=== PATIENT | female | born 1975 | race Caucasian/White ===

== ENCOUNTER 2020-12-15 15:32 | Inpatient (IN) | payer OTHER ==
[2020-12-15 16:41] LABS: BHCG - Serum Negative (NEGATIVE); Pregs Control Background? CLEAR/WHITE (CLR/WHITE); Pregs Control Bar Appear? YES (CONTROL BAR)
[2020-12-15] MEDS ORDERED: Ondansetron PF 4 MG/2 ML Vial ONE (16:51)
[2020-12-15] MEDS ORDERED: Morphine 4 MG/ML VIAL ONE ×2 (16:51→18:02)
[2020-12-15 17:00] LABS: Chloride 103 mmol/L (98-107); Potassium 3.8 mmol/L (3.5-5.1)
[2020-12-15 17:01] LABS: Carbon Dioxide 20 mmol/L (22-29)
[2020-12-15 17:02] LABS: Anion Gap 18 mmol/L (10-20); BUN (Urea Nitrogen) 10 mg/dL (7.0-18.7); Calc. Creatinine Clearance 0 mL/min (70-130); Sodium 137 mmol/L (136-145)
[2020-12-15 17:03] LABS: Bilirubin, Total 0.2 mg/dL (0.2-1.2); Calcium 8.2 mg/dL (7.8-10.44); Glucose 223 mg/dL (70-105)
[2020-12-15 17:04] LABS: ALT (SGPT) 14 U/L (8-55); AST (SGOT) 13 U/L (5-34); Alkaline Phosphatase 84 U/L (40-110); Lipase 314 U/L (8-78)
[2020-12-15 17:09] LABS: Bilirubin Neg (Negative); Blood, Urine 250 (Negative); Clarity Cloudy (Clear); Glucose, Urine (Dipstick) 250 mg/dL (Negative); Ketone, Urine 150 mg/dL (Negative); Leukocyte 25 (Negative); Nitrite Negative (Negative); Protein, Urine (Dipstick) 500 mg/dl (Neg-Trace); Specific Gravity, Urine 1.025 (1.002-1.036); Urobilinogen Normal mg/dL (Less than 2)
[2020-12-15 17:26] LABS: RBC/HPF Greater than 50 HPF (0-3)
[2020-12-15 17:27] LABS: Bacteria/HPF Rare-Few HPF (None Seen); Squamous Epithelial 0-3 HPF (0-3); WBC/HPF 0-3 HPF (0-3)
[2020-12-15 17:27] LABS: #Eosinphils 0.3 10x3/uL (0.0-0.5); #Monocytes 0.6 10x3/uL (0.0-1.1); #Neutrophils 10.7 10x3/uL (1.5-8.4); %Basophils 0.2 % (0.0-2.0); %Eosinophils 2.1 % (0.0-6.0); %Lymphocytes 14.6 % (18.0-47.0); %Monocytes 4.4 % (0.0-10.0); Hemoglobin 12.7 g/dL (12.0-15.5); Mean Corpuscular HGB CONC 36.2 g/dL (32.0-36.0); Mean Corpuscular Hemoglobin 29.2 pg (27.0-33.0); Mean Corpuscular Volume 80.7 fl (81.6-98.3); Mean Platelet Volume 12.6 fl (7.4-10.4); Platelet Count 274 10x3/uL (150-450); RBC Distribution Width 14.9 % (11.5-14.5); Red Blood Cell (RBC) Count 4.35 10x6/uL (3.90-5.03); White Blood Cell (WBC) Count 13.7 10x3/uL (3.5-10.5)
[2020-12-15] MEDS ORDERED: Dextrose 50% Abboject 50 ML SYRINGE SLOW IVP PRN (19:15)
[2020-12-15] MEDS ORDERED: Dextrose 5% in Water 1,000 ML IV PRN (19:15)
[2020-12-15] MEDS ORDERED: Zolpidem Tartrate 5 MG TAB PO PRN (19:15)
[2020-12-15] MEDS ORDERED: Calcium Carbonate 500 MG ChewTAB PO PRN (19:15)
[2020-12-15] MEDS ORDERED: Senokot S 8.6-50 MG TAB PO PRN (19:15)
[2020-12-15] MEDS ORDERED: HumaLOG 300 UNITS/3 ML VIAL SC PRN (19:15)
[2020-12-15] MEDS ORDERED: Lactated Ringer's 1,000 ML IV SCH (19:30)
[2020-12-15] MEDS: Famotidine/PF 20 mg/2ml Vial SLOW IVP SCH (20:42)
[2020-12-15] MEDS: Lactated Ringer's 1,000 ML IV SCH (20:42)
[2020-12-15] MEDS: Simvastatin 10 MG TAB PO SCH (20:42)
[2020-12-15] MEDS: Morphine 4 MG/ML VIAL SLOW IVP PRN (21:54)
[2020-12-16 02:06] VITALS: BMI 33.2
[2020-12-16] MEDS: Lactated Ringer's 1,000 ML IV SCH ×2 (06:16→16:41)
[2020-12-16] MEDS: Morphine 4 MG/ML VIAL SLOW IVP PRN ×2 (07:05→15:12)
[2020-12-16 07:14] LABS: ALT (SGPT) 11 U/L (8-55); AST (SGOT) 8 U/L (5-34); Albumin 3.2 g/dL (3.5-5.0); Alkaline Phosphatase 70 U/L (40-110); BUN (Urea Nitrogen) 4 mg/dL (7.0-18.7); Bilirubin, Total 0.4 mg/dL (0.2-1.2); Calc. Creatinine Clearance 184 mL/min (70-130); Calcium 8.2 mg/dL (7.8-10.44); Chloride 103 mmol/L (98-107); Cholesterol 345 mg/dl (< 200 Desired); Globulin 4.2 g/dL (2.4-3.5); Glucose 241 mg/dL (70-105); HDL Cholesterol 15 mg/dL (>60 Neg Risk); Lipase 183 U/L (8-78); Magnesium 1.7 mg/dL (1.6-2.6); Potassium 3.6 mmol/L (3.5-5.1); Protein, Total 7.4 g/dL (6.0-8.3); Sodium 134 mmol/L (136-145)
[2020-12-16 07:16] LABS: #Eosinphils 0.2 10x3/uL (0.0-0.5); #Monocytes 0.8 10x3/uL (0.0-1.1); #Neutrophils 9.8 10x3/uL (1.5-8.4); %Basophils 0.2 % (0.0-2.0); %Eosinophils 1.4 % (0.0-6.0); %Lymphocytes 10.4 % (18.0-47.0); %Monocytes 6.4 % (0.0-10.0); %Neutrophils 80.9 % (40.0-75.0); Hemoglobin 11.4 g/dL (12.0-15.5); Mean Corpuscular HGB CONC 33.2 g/dL (32.0-36.0); Mean Corpuscular Hemoglobin 26.6 pg (27.0-33.0); Mean Corpuscular Volume 80.1 fl (81.6-98.3); Mean Platelet Volume 12.4 fl (7.4-10.4); Platelet Count 229 10x3/uL (150-450); RBC Distribution Width 15.3 % (11.5-14.5); Red Blood Cell (RBC) Count 4.28 10x6/uL (3.90-5.03); White Blood Cell (WBC) Count 12.2 10x3/uL (3.5-10.5)
[2020-12-16] MEDS ORDERED: Glimepiride 4 MG TAB PO SCH (08:00)
[2020-12-16 08:03] LABS: Carbon Dioxide 10 mmol/L (22-29)
[2020-12-16 08:10] LABS: Triglycerides 2768 mg/dL (Less than 150)
[2020-12-16] MEDS: Lisinopril 5 MG TAB PO SCH (09:02)
[2020-12-16] MEDS: Famotidine/PF 20 mg/2ml Vial SLOW IVP SCH ×2 (09:02→20:29)
[2020-12-16] MEDS: Enoxaparin Sodium 40 MG/0.4 ML SYRINGE SC SCH (09:02)
[2020-12-16] MEDS ORDERED: D5 1/2 NS w/20 mEq KCL 1,000 ML IV PRN (09:05)
[2020-12-16] MEDS ORDERED: NS 0.9% w/ 20 MEQ KCL 1,000 ML IV PRN ×2 (09:05)
[2020-12-16] MEDS ORDERED: Electrolyte Replacement Protocol IVPB SCH (09:05)
[2020-12-16] MEDS ORDERED: Dextrose 5 %-0.45 % NaCl 1,000 ML IV PRN (09:05)
[2020-12-16 13:45] LABS: SARS-CoV-2 PCR by NAA Not Detected (NotDetected)
[2020-12-16] MEDS: INSULIN REGULAR IN 0.9 % NACL 100 UNIT in Premix Bag 1 BAG IVPB SCH (15:00)
[2020-12-16 18:15] LABS: Anion Gap 25 mmol/L (10-20); BUN (Urea Nitrogen) Less than 4 mg/dL (7.0-18.7); Calc. Creatinine Clearance 170 mL/min (70-130); Calcium 8.1 mg/dL (7.8-10.44); Carbon Dioxide 10 mmol/L (22-29); Chloride 102 mmol/L (98-107); Glucose 188 mg/dL (70-105); Sodium 133 mmol/L (136-145)
[2020-12-16 18:18] LABS: Potassium 4.3 mmol/L (3.5-5.1)
[2020-12-16] MEDS: Morphine 2 MG/ML VIAL SLOW IVP PRN (19:36)
[2020-12-16] MEDS: Simvastatin 10 MG TAB PO SCH (20:29)
[2020-12-16] MEDS: Acetaminophen 325 MG TAB PO PRN (20:31)
[2020-12-16] MEDS ORDERED: Magnesium 2 GM/50 ML 2 GM in Premix Bag 1 BAG IVPB SCH (21:00)
[2020-12-16] MEDS: Dextrose 5 % And 0.9 % NaCl 1,000 ML IV SCH (21:25)
[2020-12-17] MEDS: Ondansetron PF 4 MG/2 ML Vial IVP PRN ×2 (00:05→08:27)
[2020-12-17 04:17] LABS: #Eosinphils 0.1 10x3/uL (0.0-0.5); #Monocytes 0.5 10x3/uL (0.0-1.1); #Neutrophils 8.9 10x3/uL (1.5-8.4); %Basophils 0.2 % (0.0-2.0); %Eosinophils 1.3 % (0.0-6.0); %Lymphocytes 13.2 % (18.0-47.0); %Monocytes 4.8 % (0.0-10.0); %Neutrophils 79.7 % (40.0-75.0); Hemoglobin 9.9 g/dL (12.0-15.5); Mean Corpuscular HGB CONC 32.4 g/dL (32.0-36.0); Mean Corpuscular Hemoglobin 26.5 pg (27.0-33.0); Mean Platelet Volume 12.4 fl (7.4-10.4); Platelet Count 206 10x3/uL (150-450); RBC Distribution Width 15.5 % (11.5-14.5); Red Blood Cell (RBC) Count 3.73 10x6/uL (3.90-5.03); White Blood Cell (WBC) Count 11.1 10x3/uL (3.5-10.5)
[2020-12-17] MEDS: Morphine 2 MG/ML VIAL SLOW IVP PRN (05:09)
[2020-12-17] MEDS: Acetaminophen 325 MG TAB PO PRN ×3 (05:28→23:13)
[2020-12-17 05:51] LABS: ALT (SGPT) 11 U/L (8-55); AST (SGOT) 12 U/L (5-34); Alkaline Phosphatase 65 U/L (40-110); Anion Gap 14 mmol/L (10-20); BUN (Urea Nitrogen) 4 mg/dL (7.0-18.7); Bilirubin, Total 0.3 mg/dL (0.2-1.2); Calc. Creatinine Clearance 193 mL/min (70-130); Carbon Dioxide 18 mmol/L (22-29); Chloride 106 mmol/L (98-107); Globulin 3.7 g/dL (2.4-3.5); Glucose 197 mg/dL (70-105); Magnesium 2.2 mg/dL (1.6-2.6); Potassium 3.4 mmol/L (3.5-5.1); Protein, Total 6.7 g/dL (6.0-8.3); Sodium 135 mmol/L (136-145)
[2020-12-17] MEDS: Dextrose 5 % And 0.9 % NaCl 1,000 ML IV SCH ×3 (05:54→23:15)
[2020-12-17 06:48] LABS: Phosphorus 1.6 mg/dL (2.3-4.7)
[2020-12-17] MEDS: Lactated Ringer's 1,000 ML IV SCH (07:03)
[2020-12-17] MEDS ORDERED: Potassium Chloride 20 MEQ TAB PO SCH (08:00)
[2020-12-17] MEDS: Enoxaparin Sodium 40 MG/0.4 ML SYRINGE SC SCH (08:27)
[2020-12-17] MEDS: INSULIN REGULAR IN 0.9 % NACL 100 UNIT in Premix Bag 1 BAG IVPB SCH (08:27)
[2020-12-17] MEDS: Famotidine/PF 20 mg/2ml Vial SLOW IVP SCH ×2 (08:27→21:15)
[2020-12-17] MEDS ORDERED: Potassium Phosphate 15 MMOL in Sodium Chloride 0.9% 250 ML 250 ML IVPB SCH (09:00)
[2020-12-17] MEDS: Lisinopril 5 MG TAB PO SCH (09:03)
[2020-12-17 11:22] LABS: Hemoglobin A1c 9.6 % (4.0-6.0)
[2020-12-17 15:21] LABS: Anion Gap 11 mmol/L (10-20)
[2020-12-17 15:23] LABS: BUN (Urea Nitrogen) 4 mg/dL (7.0-18.7); Calc. Creatinine Clearance 214 mL/min (70-130); Calcium 7.9 mg/dL (7.8-10.44); Carbon Dioxide 21 mmol/L (22-29); Chloride 109 mmol/L (98-107); Glucose 146 mg/dL (70-105); Phosphorus 2.1 mg/dL (2.3-4.7); Potassium 3.8 mmol/L (3.5-5.1); Sodium 137 mmol/L (136-145)
[2020-12-17] MEDS: Simvastatin 10 MG TAB PO SCH (21:15)
[2020-12-18 04:41] LABS: ALT (SGPT) 10 U/L (8-55); AST (SGOT) 8 U/L (5-34); Albumin 2.9 g/dL (3.5-5.0); Alkaline Phosphatase 62 U/L (40-110); Anion Gap 11 mmol/L (10-20); BUN (Urea Nitrogen) Less than 4 mg/dL (7.0-18.7); Bilirubin, Total 0.3 mg/dL (0.2-1.2); Calc. Creatinine Clearance 214 mL/min (70-130); Carbon Dioxide 20 mmol/L (22-29); Chloride 110 mmol/L (98-107); Globulin 3.3 g/dL (2.4-3.5); Glucose 185 mg/dL (70-105); Potassium 3.3 mmol/L (3.5-5.1); Protein, Total 6.2 g/dL (6.0-8.3); Sodium 138 mmol/L (136-145)
[2020-12-18 04:45] LABS: Phosphorus 1.9 mg/dL (2.3-4.7)
[2020-12-18] MEDS: Enoxaparin Sodium 40 MG/0.4 ML SYRINGE SC SCH (07:44)
[2020-12-18] MEDS: PHOS-NAK 1 PKT PACK PO SCH ×2 (07:44→20:36)
[2020-12-18] MEDS: Acetaminophen 325 MG TAB PO PRN ×2 (07:44→17:47)
[2020-12-18] MEDS: Lisinopril 5 MG TAB PO SCH (07:45)
[2020-12-18] MEDS: Dextrose 5 % And 0.9 % NaCl 1,000 ML IV SCH ×3 (07:46→21:27)
[2020-12-18] MEDS: Famotidine/PF 20 mg/2ml Vial SLOW IVP SCH ×2 (07:46→20:36)
[2020-12-18] MEDS ORDERED: Potassium Bicarbonate/Cit Ac 20 MEQ TAB PO SCH (08:30)
[2020-12-18] MEDS ORDERED: Magnesium 2 GM/50 ML 2 GM in Premix Bag 1 BAG IVPB SCH (08:30)
[2020-12-18] MEDS ORDERED: PHOS-NAK 1 PKT PACK PO SCH (09:00)
[2020-12-18] MEDS: INSULIN REGULAR IN 0.9 % NACL 100 UNIT in Premix Bag 1 BAG IVPB SCH (14:43)
[2020-12-18] MEDS: Simvastatin 10 MG TAB PO SCH (20:36)
[2020-12-19] MEDS: Acetaminophen 325 MG TAB PO PRN ×2 (02:04→16:41)
[2020-12-19 04:32] LABS: #Eosinphils 0.4 10x3/uL (0.0-0.5); #Monocytes 0.5 10x3/uL (0.0-1.1); #Neutrophils 4.1 10x3/uL (1.5-8.4); %Basophils 0.3 % (0.0-2.0); %Eosinophils 5.4 % (0.0-6.0); %Lymphocytes 24.2 % (18.0-47.0); %Monocytes 7.9 % (0.0-10.0); %Neutrophils 61.7 % (40.0-75.0); Hemoglobin 8.6 g/dL (12.0-15.5); Mean Corpuscular HGB CONC 31.7 g/dL (32.0-36.0); Mean Corpuscular Hemoglobin 26.5 pg (27.0-33.0); Mean Corpuscular Volume 83.6 fl (81.6-98.3); Mean Platelet Volume 12.2 fl (7.4-10.4); Platelet Count 202 10x3/uL (150-450); RBC Distribution Width 15.3 % (11.5-14.5); Red Blood Cell (RBC) Count 3.24 10x6/uL (3.90-5.03); White Blood Cell (WBC) Count 6.6 10x3/uL (3.5-10.5)
[2020-12-19 04:46] LABS: Anion Gap 12 mmol/L (10-20)
[2020-12-19 04:49] LABS: BUN (Urea Nitrogen) Less than 4 mg/dL (7.0-18.7); Calc. Creatinine Clearance 210 mL/min (70-130); Calcium 8.2 mg/dL (7.8-10.44); Carbon Dioxide 21 mmol/L (22-29); Chloride 108 mmol/L (98-107); Glucose 173 mg/dL (70-105); Magnesium 1.8 mg/dL (1.6-2.6); Phosphorus 3.2 mg/dL (2.3-4.7); Potassium 3.2 mmol/L (3.5-5.1); Sodium 138 mmol/L (136-145)
[2020-12-19] MEDS: Dextrose 5 % And 0.9 % NaCl 1,000 ML IV SCH ×5 (06:17→20:31)
[2020-12-19] MEDS ORDERED: Potassium Chloride 20 MEQ TAB PO SCH (08:00)
[2020-12-19] MEDS: Famotidine/PF 20 mg/2ml Vial SLOW IVP SCH ×2 (08:45→20:30)
[2020-12-19] MEDS: Lisinopril 5 MG TAB PO SCH (08:45)
[2020-12-19] MEDS: Enoxaparin Sodium 40 MG/0.4 ML SYRINGE SC SCH (08:45)
[2020-12-19] MEDS: PHOS-NAK 1 PKT PACK PO SCH ×2 (08:45→20:30)
[2020-12-19] MEDS ORDERED: Magnesium 2 GM/50 ML 2 GM in Premix Bag 1 BAG IVPB SCH (09:00)
[2020-12-19] MEDS: Loperamide HCl 2 MG CAP PO PRN ×2 (11:21→20:31)
[2020-12-19] MEDS: INSULIN REGULAR IN 0.9 % NACL 100 UNIT in Premix Bag 1 BAG IVPB SCH (15:44)
[2020-12-19] MEDS: Simvastatin 10 MG TAB PO SCH (20:30)
[2020-12-20] MEDS: Dextrose 5 % And 0.9 % NaCl 1,000 ML IV SCH ×5 (02:00→21:05)
[2020-12-20 04:21] LABS: #Eosinphils 0.4 10x3/uL (0.0-0.5); #Monocytes 0.5 10x3/uL (0.0-1.1); #Neutrophils 3.6 10x3/uL (1.5-8.4); %Basophils 0.2 % (0.0-2.0); %Lymphocytes 29.3 % (18.0-47.0); %Monocytes 7.5 % (0.0-10.0); %Neutrophils 56.5 % (40.0-75.0); Hemoglobin 9.1 g/dL (12.0-15.5); Mean Corpuscular HGB CONC 30.7 g/dL (32.0-36.0); Mean Corpuscular Hemoglobin 25.9 pg (27.0-33.0); Mean Corpuscular Volume 84.3 fl (81.6-98.3); Mean Platelet Volume 11.9 fl (7.4-10.4); Platelet Count 240 10x3/uL (150-450); RBC Distribution Width 15.2 % (11.5-14.5); Red Blood Cell (RBC) Count 3.51 10x6/uL (3.90-5.03); White Blood Cell (WBC) Count 6.4 10x3/uL (3.5-10.5)
[2020-12-20 04:38] LABS: Anion Gap 13 mmol/L (10-20); BUN (Urea Nitrogen) Less than 4 mg/dL (7.0-18.7); Calc. Creatinine Clearance 214 mL/min (70-130); Calcium 8.1 mg/dL (7.8-10.44); Carbon Dioxide 21 mmol/L (22-29); Chloride 107 mmol/L (98-107); Glucose 160 mg/dL (70-105); Magnesium 1.7 mg/dL (1.6-2.6); Sodium 138 mmol/L (136-145)
[2020-12-20] MEDS: Potassium Chloride 20 MEQ TAB PO SCH ×2 (07:47→11:06)
[2020-12-20] MEDS: Famotidine/PF 20 mg/2ml Vial SLOW IVP SCH (07:48)
[2020-12-20] MEDS: Lisinopril 5 MG TAB PO SCH (07:48)
[2020-12-20] MEDS: Enoxaparin Sodium 40 MG/0.4 ML SYRINGE SC SCH (07:48)
[2020-12-20] MEDS ORDERED: Magnesium 2 GM/50 ML 2 GM in Premix Bag 1 BAG IVPB SCH (09:00)
[2020-12-20] MEDS ORDERED: Fenofibrate 48 MG TAB PO SCH ×2 (13:45→14:00)
[2020-12-20] MEDS: Famotidine 20 MG TAB PO SCH (21:05)
[2020-12-20] MEDS: Atorvastatin Calcium 40 MG TAB PO SCH (21:05)
[2020-12-21] MEDS: Dextrose 5 % And 0.9 % NaCl 1,000 ML IV SCH ×3 (01:37→10:12)
[2020-12-21 04:26] LABS: #Eosinphils 0.4 10x3/uL (0.0-0.5); #Monocytes 0.5 10x3/uL (0.0-1.1); #Neutrophils 3.1 10x3/uL (1.5-8.4); %Basophils 0.5 % (0.0-2.0); %Eosinophils 6.3 % (0.0-6.0); %Lymphocytes 31.6 % (18.0-47.0); %Monocytes 8.3 % (0.0-10.0); %Neutrophils 52.1 % (40.0-75.0); Hemoglobin 9.6 g/dL (12.0-15.5); Mean Corpuscular HGB CONC 31.7 g/dL (32.0-36.0); Mean Corpuscular Hemoglobin 26.3 pg (27.0-33.0); Mean Platelet Volume 11.4 fl (7.4-10.4); Platelet Count 254 10x3/uL (150-450); RBC Distribution Width 14.6 % (11.5-14.5); Red Blood Cell (RBC) Count 3.65 10x6/uL (3.90-5.03)
[2020-12-21 04:40] LABS: Anion Gap 15 mmol/L (10-20); BUN (Urea Nitrogen) Less than 4 mg/dL (7.0-18.7); Calc. Creatinine Clearance 210 mL/min (70-130); Calcium 8.5 mg/dL (7.8-10.44); Carbon Dioxide 22 mmol/L (22-29); Chloride 105 mmol/L (98-107); Glucose 181 mg/dL (70-105); Magnesium 1.7 mg/dL (1.6-2.6); Potassium 3.5 mmol/L (3.5-5.1); Sodium 138 mmol/L (136-145)
[2020-12-21] MEDS ORDERED: Magnesium 2 GM/50 ML 2 GM in Premix Bag 1 BAG IVPB SCH (05:45)
[2020-12-21] MEDS ORDERED: Potassium Chloride 20 MEQ TAB PO SCH (05:45)
[2020-12-21] MEDS: Fenofibrate 48 MG TAB PO SCH (09:30)
[2020-12-21] MEDS: Lisinopril 5 MG TAB PO SCH (09:30)
[2020-12-21] MEDS: Famotidine 20 MG TAB PO SCH ×2 (09:30→20:50)
[2020-12-21] MEDS: Enoxaparin Sodium 40 MG/0.4 ML SYRINGE SC SCH (09:30)
[2020-12-21] MEDS ORDERED: Lantus 1000 UNITS/10 ML VIAL SC SCH (12:00)
[2020-12-21] MEDS ORDERED: Dextrose 5% in Water 1,000 ML IV PRN (13:11)
[2020-12-21] MEDS ORDERED: Dextrose 50% Abboject 50 ML SYRINGE SLOW IVP PRN (13:11)
[2020-12-21] MEDS ORDERED: HumaLOG 300 UNITS/3 ML VIAL SC PRN (13:11)
[2020-12-21] MEDS: Acetaminophen 325 MG TAB PO PRN ×2 (16:52→20:54)
[2020-12-21] MEDS: Atorvastatin Calcium 40 MG TAB PO SCH (20:50)
[2020-12-22] MEDS ORDERED: Lisinopril 20 MG TAB PO SCH (09:00)
[2020-12-22] MEDS ORDERED: Lantus 1000 UNITS/10 ML VIAL SC SCH (09:00)
[2020-12-22] MEDS: Famotidine 20 MG TAB PO SCH (11:31)
[2020-12-22] MEDS: Enoxaparin Sodium 40 MG/0.4 ML SYRINGE SC SCH (11:31)
[2020-12-22] MEDS: Fenofibrate 48 MG TAB PO SCH (11:31)
[2020-12-22 11:45] VITALS: BP 142/84
[2020-12-22 20:39] VITALS: TEMP 98.1
== END 2020-12-22 11:45 | disposition home or self-care (01) | DRG 439 ==
LOC: CSHERS 15:32 → CSHTELE 19:26 → CSHIMCU 12-16 15:20 → CSHTELE 12-21 14:42
PROVIDERS: ADMIT Student in an Organized Health Care Education/Training Program; ATTEND Family Medicine
DX: K85.00 Idiopathic acute pancreatitis without necrosis or infection (principal); R65.10 Systemic inflammatory response syndrome (SIRS) of non-infectious origin without acute organ dysfunction; E78.1 Pure hyperglyceridemia; E86.0 Dehydration; K76.0 Fatty (change of) liver, not elsewhere classified; E78.5 Hyperlipidemia, unspecified; I10 Essential (primary) hypertension; E66.9 Obesity, unspecified; Z68.33 Body mass index [BMI] 33.0-33.9, adult; E11.65 Type 2 diabetes mellitus with hyperglycemia; Z79.4 Long term (current) use of insulin; K80.20 Calculus of gallbladder without cholecystitis without obstruction; Z20.822 Contact with and (suspected) exposure to COVID-19
CPT/HCPCS: 36415; 36416; 74177; 76705; 80048; 80053; 80061; 81003; 81015; 83036; 83605; 83690; 83735; 84100; 84478; 84703; 85025; 87635; 96374; 96375; 96376; J1650; J1815; J2270; J2405; J3475; J7042; J7050; S0028; U0003; U0005

== ENCOUNTER 2022-12-13 06:10 | Inpatient (IN) | payer SELFPAY ==
[2022-12-13 07:26] LABS: Bilirubin Neg (Negative); Blood, Urine Negative (Negative); Clarity Clear (Clear); Glucose, Urine (Dipstick) >=1000 mg/dL (Negative); Ketone, Urine 15 mg/dL (Negative); Leukocyte Negative (Negative); Nitrite Negative (Negative); Protein, Urine (Dipstick) 15 mg/dl (Neg-Trace); Specific Gravity, Urine 1.015 (1.005-1.030); Urobilinogen Normal mg/dL (Less than 2)
[2022-12-13 07:31] LABS: Pregnancy Test - Urine (BHCG) Negative (Negative); Pregu Control Background? CLEAR/WHITE (CLR/WHITE); Pregu Control Bar Appear? YES (CONTROL BAR); Specific Gravity 1.015 (1.002-1.036)
[2022-12-13] MEDS ORDERED: Morphine 4 MG/ML VIAL ONE (07:32)
[2022-12-13] MEDS ORDERED: Ondansetron PF 4 MG/2 ML Vial ONE (07:32)
[2022-12-13 08:10] LABS: #Eosinphils 0.3 10x3/uL (0.0-0.5); #Monocytes 0.6 10x3/uL (0.0-1.1); #Neutrophils 7.3 10x3/uL (1.5-8.4); %Basophils 0.3 % (0.0-2.0); %Eosinophils 3.1 % (0.0-6.0); %Lymphocytes 17.6 % (18.0-47.0); %Monocytes 5.6 % (0.0-10.0); %Neutrophils 72.5 % (40.0-75.0); Hemoglobin 12.4 g/dL (12.0-15.5); Mean Corpuscular HGB CONC 36.5 g/dL (32.0-36.0); Mean Corpuscular Hemoglobin 29.6 pg (27.0-33.0); Mean Corpuscular Volume 81.1 fl (81.6-98.3); Mean Platelet Volume 12.9 fl (7.4-10.4); Platelet Count 262 10x3/uL (150-450); RBC Distribution Width 14.4 % (11.5-14.5); Red Blood Cell (RBC) Count 4.19 10x6/uL (3.90-5.03); White Blood Cell (WBC) Count 10.1 10x3/uL (3.5-10.5)
[2022-12-13 08:17] LABS: ALT (SGPT) 14 U/L (8-55); AST (SGOT) 11 U/L (5-34); Albumin 3.9 g/dL (3.5-5.0); Alkaline Phosphatase 90 U/L (40-110); BUN (Urea Nitrogen) 5 mg/dL (7.0-18.7); Bilirubin, Total 0.3 mg/dL (0.2-1.2); Calc. Creatinine Clearance 0 mL/min (70-130); Chloride 99 mmol/L (98-107); Estimated GFR 109; Globulin 4.5 g/dL (2.4-3.5); Glucose 291 mg/dL (70-105); Lipase 395 U/L (8-78); Potassium 3.9 mmol/L (3.5-5.1); Protein, Total 8.4 g/dL (6.0-8.3); Sodium 131 mmol/L (136-145)
[2022-12-13 08:25] LABS: Carbon Dioxide Less than 8 mmol/L (22-29)
[2022-12-13 09:27] LABS: Actual Bicarbonate (HCO3v) 22 mEq/L (22-28); Base Excess -4.3 mEq/L (-2 - +2); Calcium, Ionized (venous) 1.17 mmol/L (1.16-1.32); Chloride (VBG) 99 mmol/L (98-106); Hemoglobin (Hb) 11.5 g/dL (11.7-16.0); Potassium (VBG) 4.19 mmol/L (3.70-5.30); Puncture Site Other Site; RapidComm Collect By CBN; Sodium 139.2 mmol/L (133-146); pH (venous) 7.31 (7.32-7.43)
[2022-12-13] MEDS ORDERED: Dextrose 5 %-0.45 % NaCl 1,000 ML IV PRN (09:31)
[2022-12-13] MEDS ORDERED: Sodium Chloride 0.9% 1,000 ML IV PRN ×4 (09:31)
[2022-12-13] MEDS ORDERED: Electrolyte Replacement Protocol 1 EACH IVPB SCH (09:31)
[2022-12-13] MEDS ORDERED: NS 0.9% w/ 20 MEQ KCL 1,000 ML IV PRN ×2 (09:31)
[2022-12-13] MEDS ORDERED: Dextrose 50% Abboject 50 ML SYRINGE SLOW IVP PRN (09:31)
[2022-12-13] MEDS ORDERED: INSULIN REGULAR IN 0.9 % NACL 100 UNIT/100 ML BAG ONE (09:44)
[2022-12-13] MEDS ORDERED: HYDROcodone/Acetaminophen 5/325 mg Tablet PO PRN (09:52)
[2022-12-13] MEDS ORDERED: Acetaminophen 650 MG Suppository PR PRN (09:52)
[2022-12-13] MEDS ORDERED: Ondansetron PF 4 MG/2 ML Vial IVP PRN (09:52)
[2022-12-13] MEDS ORDERED: NS 0.9% w/ 20 MEQ KCL 1,000 ML ONE (09:58)
[2022-12-13 10:00] LABS: Acetaminophen Less than 10.0 mcg/mL (10.0-30.0); Alcohol Less than 10 mg/dL (Less than 10); Salicylate Less than 8.0 mg/dL (15.0-30.0)
[2022-12-13 10:00] LABS: BHCG - Serum Negative (NEGATIVE); Pregs Control Background? CLEAR/WHITE (CLR/WHITE); Pregs Control Bar Appear? YES (CONTROL BAR)
[2022-12-13 10:06] LABS: Cardiac Risk 72.7 (Less than 4.5); Cholesterol 654 mg/dl (< 200 Desired); HDL Cholesterol 9 mg/dL (>60 Neg Risk)
[2022-12-13 10:13] LABS: Triglycerides Greater than 3800 mg/dL (Less than 150)
[2022-12-13 10:53] LABS: BUN (Urea Nitrogen) 4 mg/dL (7.0-18.7); Calc. Creatinine Clearance 183 mL/min (70-130); Calcium 8.2 mg/dL (7.8-10.44); Chloride 103 mmol/L (98-107); Estimated GFR 112; Glucose 237 mg/dL (70-105); Magnesium 1.6 mg/dL (1.6-2.6); Phosphorus 1.9 mg/dL (2.3-4.7); Potassium 3.7 mmol/L (3.5-5.1); Sodium 131 mmol/L (136-145)
[2022-12-13 10:57] LABS: Carbon Dioxide Less than 8 mmol/L (22-29)
[2022-12-13] MEDS: D5 1/2 NS w/20 mEq KCL 1,000 ML IV PRN ×3 (11:00→20:49)
[2022-12-13 11:14] LABS: Amphetamine Not Detected (NotDetected); Barbiturates Screen Not Detected (NotDetected); Benzodiazepine Screen Not Detected (NotDetected); Cocaine Metabolite Screen Not Detected (NotDetected); Methadone Not Detected (NotDetected); Methamphetamine Not Detected (NotDetected); Opiate Screen Not Detected (NotDetected); Oxycodone Screen Not Detected (NotDetected); Phencyclidine (PCP) Not Detected (NotDetected); THC/Cannabinoid Screen Not Detected (NotDetected); Tricyclic Screen Not Detected (NotDetected)
[2022-12-13] MEDS ORDERED: Dextrose 10% in Water 250 ML IVPB SCH (11:45)
[2022-12-13] MEDS ORDERED: Potassium Phosphate 15 MMOL in Sodium Chloride 0.9% 250 ML 250 ML IVPB SCH (12:00)
[2022-12-13] MEDS ORDERED: Magnesium 2 GM/50 ML(in water) 2 GM in Premix Bag 1 BAG IVPB SCH (12:00)
[2022-12-13] MEDS ORDERED: Iopamidol 300 61% 100 ML VIAL FS ONE (12:23)
[2022-12-13] MEDS: INSULIN REGULAR IN 0.9 % NACL 100 UNIT in Premix Bag 1 BAG IVPB SCH (12:27)
[2022-12-13 14:55] LABS: BUN (Urea Nitrogen) Less than 4 mg/dL (7.0-18.7); Calc. Creatinine Clearance 164 mL/min (70-130); Calcium 8.7 mg/dL (7.8-10.44); Chloride 101 mmol/L (98-107); Estimated GFR 109; Glucose 224 mg/dL (70-105); Potassium 4.1 mmol/L (3.5-5.1); Sodium 129 mmol/L (136-145)
[2022-12-13 14:57] LABS: Carbon Dioxide Less than 8 mmol/L (22-29)
[2022-12-13] MEDS: Acetaminophen 325 MG TAB PO PRN (18:31)
[2022-12-13 18:42] LABS: BUN (Urea Nitrogen) Less than 4 mg/dL (7.0-18.7); Calc. Creatinine Clearance 169 mL/min (70-130); Calcium 8.6 mg/dL (7.8-10.44); Chloride 102 mmol/L (98-107); Estimated GFR 110; Glucose 237 mg/dL (70-105); Potassium 3.9 mmol/L (3.5-5.1); Sodium 131 mmol/L (136-145)
[2022-12-13 18:49] LABS: Carbon Dioxide Less than 8 mmol/L (22-29)
[2022-12-13] MEDS: Atorvastatin Calcium 40 MG TAB PO SCH (20:49)
[2022-12-13] MEDS: Famotidine/PF 20 mg/2ml Vial SLOW IVP SCH (20:49)
[2022-12-13] MEDS ORDERED: Fish Oil 1,000 MG CAP PO SCH (21:00)
[2022-12-14] MEDS: INSULIN REGULAR IN 0.9 % NACL 100 UNIT in Premix Bag 1 BAG IVPB SCH ×3 (01:01→20:15)
[2022-12-14] MEDS: D5 1/2 NS w/20 mEq KCL 1,000 ML IV PRN ×5 (01:12→20:38)
[2022-12-14 04:33] LABS: #Eosinphils 0.4 10x3/uL (0.0-0.5); #Monocytes 0.6 10x3/uL (0.0-1.1); #Neutrophils 5.4 10x3/uL (1.5-8.4); %Basophils 0.2 % (0.0-2.0); %Eosinophils 4.7 % (0.0-6.0); %Lymphocytes 23.3 % (18.0-47.0); %Monocytes 7.1 % (0.0-10.0); Hemoglobin 10.9 g/dL (12.0-15.5); Mean Corpuscular HGB CONC 34.6 g/dL (32.0-36.0); Mean Corpuscular Hemoglobin 29.1 pg (27.0-33.0); Mean Platelet Volume 12.3 fl (7.4-10.4); Platelet Count 221 10x3/uL (150-450); RBC Distribution Width 14.2 % (11.5-14.5); Red Blood Cell (RBC) Count 3.75 10x6/uL (3.90-5.03); White Blood Cell (WBC) Count 8.5 10x3/uL (3.5-10.5)
[2022-12-14 04:58] LABS: Lipase 103 U/L (8-78); Phosphorus 2.2 mg/dL (2.3-4.7)
[2022-12-14 05:01] LABS: ALT (SGPT) 9 U/L (8-55); AST (SGOT) 8 U/L (5-34); Albumin 3.1 g/dL (3.5-5.0); Alkaline Phosphatase 63 U/L (40-110); Anion Gap 16 mmol/L (10-20); BUN (Urea Nitrogen) Less than 4 mg/dL (7.0-18.7); Bilirubin, Total 0.2 mg/dL (0.2-1.2); Calc. Creatinine Clearance 177 mL/min (70-130); Calcium 8.6 mg/dL (7.8-10.44); Carbon Dioxide 17 mmol/L (22-29); Chloride 106 mmol/L (98-107); Estimated GFR 112; Globulin 3.8 g/dL (2.4-3.5); Glucose 153 mg/dL (70-105); Magnesium 1.8 mg/dL (1.6-2.6); Potassium 3.7 mmol/L (3.5-5.1); Protein, Total 6.9 g/dL (6.0-8.3); Sodium 135 mmol/L (136-145)
[2022-12-14 05:13] LABS: Triglycerides 3081 mg/dL (Less than 150)
[2022-12-14] MEDS ORDERED: Magnesium 2 GM/50 ML(in water) 2 GM in Premix Bag 1 BAG IVPB SCH (06:00)
[2022-12-14] MEDS: Dextrose 10% in Water 250 ML IV SCH (08:00)
[2022-12-14] MEDS: Famotidine/PF 20 mg/2ml Vial SLOW IVP SCH ×2 (08:35→20:03)
[2022-12-14] MEDS: Icosapent Ethyl 1 GM CAPSULE PO SCH (08:36)
[2022-12-14] MEDS: Fenofibrate Nanocrystallized 145 MG TAB PO SCH (08:36)
[2022-12-14] MEDS: Acetaminophen 325 MG TAB PO PRN (08:53)
[2022-12-14 10:12] LABS: Glucose 238 mg/dL (70-105)
[2022-12-14 11:21] LABS: Glucose 252 mg/dL (70-105)
[2022-12-14 12:18] LABS: Glucose 224 mg/dL (70-105)
[2022-12-14 13:13] LABS: Hemoglobin A1c 9.1 % (4.0-6.0)
[2022-12-14 13:55] LABS: Glucose 239 mg/dL (70-105)
[2022-12-14 14:52] LABS: Glucose 211 mg/dL (70-105)
[2022-12-14 15:54] LABS: Glucose 188 mg/dL (70-105)
[2022-12-14 16:47] LABS: Glucose 189 mg/dL (70-105)
[2022-12-14 17:57] LABS: Glucose 167 mg/dL (70-105)
[2022-12-14 18:49] LABS: Glucose 191 mg/dL (70-105)
[2022-12-14] MEDS: Atorvastatin Calcium 40 MG TAB PO SCH (20:03)
[2022-12-14 20:08] LABS: Glucose 180 mg/dL (70-105)
[2022-12-14 21:16] LABS: Glucose 170 mg/dL (70-105)
[2022-12-14 22:26] LABS: Glucose 168 mg/dL (70-105)
[2022-12-14 23:43] LABS: Glucose 148 mg/dL (70-105)
[2022-12-15] MEDS: D5 1/2 NS w/20 mEq KCL 1,000 ML IV PRN ×5 (01:18→20:02)
[2022-12-15 01:47] LABS: Glucose 138 mg/dL (70-105)
[2022-12-15] MEDS: Dextrose 10% in Water 250 ML IV SCH (01:54)
[2022-12-15 04:47] LABS: Glucose 164 mg/dL (70-105)
[2022-12-15 04:55] LABS: Anion Gap 12 mmol/L (10-20); BUN (Urea Nitrogen) Less than 4 mg/dL (7.0-18.7); Calc. Creatinine Clearance 196 mL/min (70-130); Calcium 8.8 mg/dL (7.8-10.44); Carbon Dioxide 21 mmol/L (22-29); Chloride 108 mmol/L (98-107); Estimated GFR 114; Glucose 163 mg/dL (70-105); Lipase 42 U/L (8-78); Potassium 3.9 mmol/L (3.5-5.1); Sodium 137 mmol/L (136-145)
[2022-12-15 05:10] LABS: Triglycerides 1730 mg/dL (Less than 150)
[2022-12-15 05:42] LABS: Glucose 161 mg/dL (70-105)
[2022-12-15 06:48] LABS: Glucose 161 mg/dL (70-105)
[2022-12-15] MEDS: Acetaminophen 325 MG TAB PO PRN (07:44)
[2022-12-15 07:46] LABS: Glucose 162 mg/dL (70-105)
[2022-12-15] MEDS: Fenofibrate Nanocrystallized 145 MG TAB PO SCH (08:56)
[2022-12-15] MEDS: Icosapent Ethyl 1 GM CAPSULE PO SCH (08:56)
[2022-12-15] MEDS: Famotidine/PF 20 mg/2ml Vial SLOW IVP SCH ×2 (08:56→20:02)
[2022-12-15 09:19] LABS: Glucose 216 mg/dL (70-105)
[2022-12-15] MEDS: INSULIN REGULAR IN 0.9 % NACL 100 UNIT in Premix Bag 1 BAG IVPB SCH ×2 (09:41→21:45)
[2022-12-15] MEDS ORDERED: Polyethylene Glycol 3350 17 GM Packet PO SCH (14:00)
[2022-12-15] MEDS: Atorvastatin Calcium 40 MG TAB PO SCH (20:02)
[2022-12-16] MEDS: D5 1/2 NS w/20 mEq KCL 1,000 ML IV PRN ×2 (00:08→04:16)
[2022-12-16 04:32] LABS: Anion Gap 15 mmol/L (10-20); BUN (Urea Nitrogen) Less than 4 mg/dL (7.0-18.7); Calc. Creatinine Clearance 181 mL/min (70-130); Calcium 9.2 mg/dL (7.8-10.44); Carbon Dioxide 22 mmol/L (22-29); Chloride 106 mmol/L (98-107); Estimated GFR 112; Glucose 162 mg/dL (70-105); Sodium 139 mmol/L (136-145)
[2022-12-16 05:12] LABS: Triglycerides 1242 mg/dL (Less than 150)
[2022-12-16 06:26] VITALS: BMI 36.1
[2022-12-16] MEDS: Famotidine/PF 20 mg/2ml Vial SLOW IVP SCH (07:26)
[2022-12-16] MEDS: Fenofibrate Nanocrystallized 145 MG TAB PO SCH (07:26)
[2022-12-16] MEDS: Icosapent Ethyl 1 GM CAPSULE PO SCH (07:27)
[2022-12-16] MEDS: Polyethylene Glycol 3350 17 GM Packet PO SCH ×2 (07:27→07:35)
[2022-12-16] MEDS ORDERED: metFORMIN 500 MG TAB PO SCH (08:00)
[2022-12-16] MEDS ORDERED: Glimepiride 4 MG TAB PO SCH (08:00)
[2022-12-16] MEDS ORDERED: Pioglitazone HCl 15 MG TAB PO SCH (09:00)
[2022-12-16 09:05] VITALS: TEMP 97.9
[2022-12-16 10:18] VITALS: BP 137/88
== END 2022-12-16 10:15 | disposition home or self-care (01) | DRG 438 ==
LOC: CSHERS 06:10 → CSHICU 09:31
PROVIDERS: ADMIT Family Medicine; ATTEND Family Medicine
DX: K85.90 Acute pancreatitis without necrosis or infection, unspecified (principal); E11.10 Type 2 diabetes mellitus with ketoacidosis without coma; E78.1 Pure hyperglyceridemia; I10 Essential (primary) hypertension; E11.65 Type 2 diabetes mellitus with hyperglycemia; E78.00 Pure hypercholesterolemia, unspecified; K80.20 Calculus of gallbladder without cholecystitis without obstruction; E66.9 Obesity, unspecified; Z68.36 Body mass index [BMI] 36.0-36.9, adult; Z79.899 Other long term (current) drug therapy; Z79.84 Long term (current) use of oral hypoglycemic drugs; Z98.890 Other specified postprocedural states; Z98.51 Tubal ligation status
CPT/HCPCS: 36415; 36416; 71045; 74177; 76705; 80048; 80053; 80061; 80306; 80307; 81003; 81025; 82010; 82805; 83036; 83605; 83690; 83735; 83930; 84100; 84478; 84484; 84703; 85025; 93005; 94760; 96361; 96365; 96375; J1650; J1815; J2270; J2405; J3475; J3480; J7050; J7999; Q9967; S0028

== ENCOUNTER 2025-05-28 08:34 | Emergency (ER) | payer OTHER, SELFPAY ==
[2025-05-28] MEDS ORDERED: HYDROcodone/Acetaminophen 5/325 mg Tablet ONE (09:04)
[2025-05-28] MEDS ORDERED: Ketorolac Tromethamine 30 MG (1 mL) VIAL ONE (10:18)
== END 2025-05-28 10:32 | disposition home or self-care (01) ==
LOC: CSHERS 08:34
DX: M79.661 Pain in right lower leg (principal); M62.838 Other muscle spasm; I10 Essential (primary) hypertension; E11.9 Type 2 diabetes mellitus without complications
CPT/HCPCS: 96372; J1885

== ENCOUNTER 2025-06-10 13:35 | Emergency (ER) | payer SELFPAY ==
[2025-06-10 15:46] LABS: #Basophils 0.04 10x3/uL (0.0-0.2); #Eosinophils 0.19 10x3/uL (0.0-0.5); #Monocytes 0.44 10x3/uL (0.0-1.1); #Neutrophils 4.78 10x3/uL (1.5-8.4); %Basophils 0.5 % (0.0-2.0); %Eosinophils 2.5 % (0.0-6.0); %Lymphocytes 26.8 % (18.0-47.0); %Monocytes 5.8 % (0.0-10.0); %Neutrophils 63.5 % (40.0-75.0); Hematocrit 37.6 % (34.9-44.5); Hemoglobin 12.8 g/dL (12.0-15.5); Mean Corpuscular Hemoglobin 28.8 pg (27.0-33.0); Mean Corpuscular Volume 84.5 fL (81.6-98.3); Platelet Count 365 10x3/uL (150-450); Red Blood Cell (RBC) Count 4.45 10x6/uL (3.90-5.03); White Blood Cell (WBC) Count 7.54 10x3/uL (3.5-10.5)
[2025-06-10 15:55] LABS: ALT (SGPT) 10 U/L (Less than 34); AST (SGOT) 14 U/L (11-34); Albumin 3.8 g/dL (3.1-4.5); Alkaline Phosphatase 80 U/L (40-110); Anion Gap 11 mmol/L (10-20); BUN (Urea Nitrogen) 14 mg/dL (7.0-18.7); Bilirubin, Total 0.2 mg/dL (0.3-1.2); Calc. Creatinine Clearance 0 mL/min (70-130); Calcium 9.9 mg/dL (7.8-10.44); Carbon Dioxide 28 mmol/L (22-29); Chloride 102 mmol/L (98-107); Globulin 3.7 g/dL (2.4-3.5); Glucose 272 mg/dL (70-105); Potassium 4.1 mmol/L (3.5-5.1); Sodium 137 mmol/L (136-145)
== END 2025-06-10 17:00 | disposition home or self-care (01) ==
LOC: CSHERS 13:35
DX: R22.41 Localized swelling, mass and lump, right lower limb (principal); E11.65 Type 2 diabetes mellitus with hyperglycemia; R20.2 Paresthesia of skin; I10 Essential (primary) hypertension
CPT/HCPCS: 36415; 71045; 80053; 85025; 87428; 93005; 94760